=== PATIENT | female | born 1955 ===

== ENCOUNTER → 2018-01-25 | Day surgery (SDC) | payer OTHER | END | disposition home or self-care (01) | LOC: ADM 01-16 14:45 → EDBD 06:43 → AMB-ENDOS 06:43 | DX: K29.60 Other gastritis without bleeding (principal); K44.9 Diaphragmatic hernia without obstruction or gangrene; K29.80 Duodenitis without bleeding; K21.9 Gastro-esophageal reflux disease without esophagitis; K31.7 Polyp of stomach and duodenum ==